=== PATIENT | female | born 1940 | race Two or more races ===

== ENCOUNTER 2019-03-03 12:31 | Outpatient (CLI) | payer OTHER ==
[~2019-03-03 12:31] MED LIST: FOLIC ACID1 MG PO; GLIPIZIDE5 MG PO; METFORMIN HCL500 MG PO; NABUMETONE750 MG PO; SIMVASTATIN10 MG PO; TOPROL XL50 M1 PO; [UNRECOGNIZED DRUG - OTHER] PO
== END 2019-03-03 12:47 | disposition home or self-care (01) ==
LOC: SONOGRAMA 12:31
DX: N60.11 Diffuse cystic mastopathy of right breast (principal); N60.12 Diffuse cystic mastopathy of left breast; N63.13 Unspecified lump in the right breast, lower outer quadrant